=== PATIENT | female | born 1960 | race Caucasian/White ===

== ENCOUNTER → 2016-05-28 | Outpatient (CLI) | payer OTHER ==
[~2016-05-28] MED LIST: AMLO-110 PO; LSN5 PO; METFTAB2 PO
--- NOTE | 2016-05-29 07:15 | PAP/PSG TECHNICIAN REPORT ---
[facility] Supervisor Liquefaction Polysomnogram Report Study name: None Report date: 05/29/2016 Study date: 05/28/2016 Referring Physician: LOLITA KENNEDY PA-C Name: RICARDO HICKMAN Interpreting Physician: Alex Cho M.D. Date of : 1960 Supervisor Liquefaction: Adrianna Bonner, PSGT. Sex: Female Age: 55 StudyType: PSG Weight: 248 lbs Height: 55 years, Height 4' 11" Neck Circum: BMI: 50.08 Medications: AVELOX 400 MG, PROVENTIL 2.5 MG, NORVASAC 5 MG, ATIVAN 0.5 MG, LISINOPRIL 5 MG, METFORMIN ER 500 MG, LEVOXYL 25 MCH, PAXIL 20 MG. Patient History 55 YR. OLD FEMALE IN ROOM 7, HAD A AHI OF 7.7 IN AND IS HERE FOR A TITRATION SLEEP STUDY. Parameters Monitored NPSG: E1-M2, E2-M1, Fp1-M2, Fp2-M1, F3-M2, F4-M2, F4-M1, C3-M2, C4-M2, C4-M1, O1-M2, O2-M2, O2-M1, T3-M2, T4-M1, P3-M2, P4-M1, CHIN1, CHIN2, HR, EKG, Legs, PFLOW, SNOR, FLOW, CFLOW, Tidal Volume, THOR, ABDO, SpO2, PLTH, CPRESS, ETCO2 Wave, ETCO2, pH Sleep Architecture Sleep Stages Time at Lights Off 11:07:32 PM STAGES Time (min.) TST (%) Time at Lights On 5:42:32 AM Wake 53.5 -- Total Recording Time (TRT) 395.50 min. N1 35.5 10 Total Sleep Period (TSP) 377.0 min. N2 202.5 59 Total Sleep Time (TST) 340.5min. N3 22.5 7 Awake Time 55.0 min. REM 80.0 23 Wake after Sleep Onset 38.5 min. Sleep Efficiency (SE) 86 % Sleep Onset Latency (SONYA) 16.0 min. Number of Stage 1 Shifts None Awakenings 8 Stage Changes 35 Number of REM periods 2 REM 80.0 23 REM Latency 147.0 min. NREM 260.5 77 Body Position Analysis Supine Right Left Side Prone Vertical Total Sleep Time (min.) 17.2 151.1 176.1 327.20 0.0 0.0 Total Sleep Time (%) 4% 44% 52% 96 0% N/A% Total Sleep Time REM (min.) 13.3 23.2 43.5 None 0.0 0.0 Total Sleep Time NREM (min.) 0.0 127.9 132.6 None 0.0 0.0 Intermittent Wake (min.) 3.9 24.4 25.2 None 0.0 0.0 Total Sleep Period (%) 4% None None None None None Arousals Myoclonus (PLM) * Events Count Index Events Count Index Spontaneous 14 2 Events Awake (PLMW) 1 1.1 Respiratory 0 0.0 Events Asleep w/ Arousal (PLMA) 6 1.1 PLM 6 1 Events Asleep w/o Arousal (PLMS) 173 30.5 Snoring 0 0 Total Asleep 179 31.5 Total 20 4 Total 180 27 Respiratory Analysis * CA OA MA CH H RERA Total Count 0 0 0 0 0 0 0 Index 0.0 0.0 0.0 0 0.0 0 0.0 Mean Duration 0.0 0.0 0.0 0.00 0.0 0.0 0.0 Longest Duration 0.0 0.0 0.0 0.00 0.0 0.0 0.0 Respiratory Event Summary Total Supine ~Supine Right Left Prone REM NREM Apneas Count 0 0 0 0 0 N/A 0 0 Index 0.0 0 0 0.0 0.0 N/A 0 0 Hypopneas (4% Desat) Count 0 0 0 0 0 N/A 0 0 Index 0.0 0.0 0 0.0 0.0 N/A 0.0 0.0 Apneas & All Hypopneas Count 0 0 0 0 0 N/A 0 0 Index 0.0 0 0 0 0 N/A 0.0 0.0 Respiratory Events (Slicer Machine Operator+All Hyp+RERA) Count 0 0 0 0 0 N/A 0 0 Index 0.0 0 0 0.0 0.0 N/A 0.0 0.0 Respiratory Related Arousal Count 0 0 0 0 0 N/A 0 0 Index 0.0 0 0 0 0 N/A 0 0 Snoring Analysis Supine Right Left Prone REM NREM Total Snore duration 0.1 min Snores count 1 2 0 N/A 1 2 3 Snore mean duration 2.0 Sec Snores index 5 1 0 N/A 0.8 0.5 0.5 TST with snoring (%) 0.0% Desaturation Event Summary: Minimum %SpO2 Event Count Mean/Min/Max Duration(sec.) Desaturation Index % Time In Bed > 90 4 31.2 / 19.0 / 41.3 0.7 93.4 86 - 90 0 N/A 0.0 6.5 81 - 85 0 N/A 0.0 0.1 76 - 80 0 N/A 0.0 0.0 71 - 75 0 N/A 0.0 0.0 66 - 70 0 N/A 0.0 0.0 61 - 65 0 N/A 0.0 0.0 56 - 60 0 N/A 0.0 0.0 51 - 55 0 N/A 0.0 0.0 < 50 0 N/A 0.0 0.0 Total REM NREM Awake <50% 0.0 min. 0.0 min. 0.0 min. 0.0 min. 51 - 60% 0.0 min. 0.0 min. 0.0 min. 0.0 min. 61 - 70% 0.0 min. 0.0 min. 0.0 min. 0.0 min. 71 - 80% 0.1 min. 0.0 min. 0.0 min. 0.1 min. 81 - 90% 24.9 min. 0.3 min. 21.5 min. 3.2 min. 91 - 100% 354.5 min. 79.3 min. 236.0 min. 39.2 min. Average 93 93 93 94 Minimum SpO2 72 76 79 72 Desaturation Event Index 0.6 1.5 0.5 0.0 # Desat. Events below 89% N/A N/A N/A N/A Time(%) with Saturation below 89% 0.1 0.0 0.1 0.0 Time(min.) with Saturation below 89% 0.4 0.0 0.2 0.2 Heart Rate Analysis End Tidal CO2 Analysis Min (bpm) Max (bpm) Average (bpm) TSP (mins) % of TSP Awake 42 250 84 Above 55 mmHg 0.0 0.0 NREM 63 250 78 50-55 mmHg 0.0 0.0 REM 69 88 76 45-50 mmHg 340.5 100.0 Overall 63 250 78 40-45 mmHg 0.0 0.0 35-40 mmHg 0.0 0.0 30-35 mmHg 0.0 0.0 Average ETCO2 0.0 Supplemental O2 Values Minimum O2 level: None Value Start Time End Time Supervisor Liquefaction Comments PAP Study: MS. Hickman slept in the right, left, and supine positions. No cardiac arrhythmia or PLM's noted. No bruxism noted. CPAP was initiated at +4 CMH2O and up-titrated to an optimal level of +5 CMH2O, which nearly eliminated all respiratory events and snoring. A Small Res [employer] Mirage FX was used during titration Ms. Hickman awoke to use the restroom one time during the night. Ms. Hickman stated, I did not sleep as well as I do when I am in my own bed". The final report will be interpreted and signed by a sleep physician. The completed physician report will then be placed in the patient medical record. Pt. had chosen a nasal mask this time, and she did well with it. She tolerated and responded well to treatment. One increase of pressure was made for snoring. Therapy Event: Therapy (cm H20) 0 4 5 Total Time at Pressure (min.) 2.4 233.6 158.0 TST at Pressure (min.) 0.0 202.0 138.5 # Periods 1 1 1 Sleep Onset (min.) N/A 13.6 0.0 REM Onset (min.) N/A 160.6 120.5 Sleep Efficiency % 0 86 87 Wakefulness (%) 100.0 13.5 12.3 Wakefulness (min.) 2.4 31.6 19.5 NREM 1 (%) 0.0 12.0 4.7 NREM 1 (min.) 0.0 28.0 7.5 NREM 2 (%) 0.0 46.2 59.8 NREM 2 (min.) 0.0 108.0 94.5 NREM 3 (%) 0.0 9.6 0.0 NREM 3 (min.) 0.0 22.5 0.0 REM (%) 0.0 18.6 23.1 REM (min.) 0.0 43.5 36.5 # Arousals N/A 10 10 Arousal Index N/A 3.0 4.3 # Snore N/A 0 3 Snore Index N/A 0.0 1.3 AHI N/A 0.0 0.0 AHI Supine N/A N/A 0.0 AHI Non-Supine N/A 0.0 0.0 NREM AHI N/A 0.0 0.0 REM AHI N/A 0.0 0.0 RDI N/A 0.0 0.0 # Obstructive N/A 0 0 # Central Ap N/A 0 0 # Mixed N/A 0 0 # Hypopneas N/A 0 0 RERAS N/A 0 0 Total Respiratory Events N/A 0 0 Time Below SpO2 89.00% (min.) 0.0 0.0 0.2 Mean NREM SpO2 (%) N/A 95 92 Mean REM SpO2 (%) N/A 93 93 Mean Sleep SpO2 (%) N/A 94 92 Min NREM SpO2 (%) N/A 91 79 Min REM SpO2 (%) N/A 76 90 Position Supine (min.) 0.0 0.0 13.3 Position Non-supine (min.) 0.0 202.0 125.2 LM Index Sleep N/A 46.0 10.4 LM Index NREM N/A 56.4 10.0 LM Index REM N/A 8.3 11.5 Mean Heart Rate (bpm) N/A 78 77 Min Heart Rate (bpm) N/A 69 63
--- NOTE | 2016-06-15 17:32 | POLYSOMNOGRAPH REPORT ---
REFERRING PERSON: Dr. Shelia Cho. MECHANIC: Gabrielle Bonner. HISTORY: Ms. Dallas is a 55-year-old female who was found to have mild sleep apnea and nocturnal hypoxemia on sleep testing in February 2016. She has been sent to the sleep lab for a full night titration study. Her Ney sleepiness scale score on the evening of this study is not recorded. BMI is 50.08. Following the technical and digital specifications of the [employer] [place] [employer] (AASM) a standard diagnostic polysomnogram was performed monitoring EEG, EOG, EMG (chin and leg deviations), oxygen saturation, body position, digital video, respiratory effort and airflow. The sleep Stage and event scoring was based on the AASM Manual for the Scoring of Sleep and Associated Events 2007 edition. Apneas are defined as a drop in the peak thermal sensor excursion by >90% of baseline for at least 10 seconds. Hypopneas were scored using the 4% oxygen desaturation rule (4A-[employer]) and a decrease in the nasal pressure excursions by >30% of baseline for at least 10 seconds. Respiratory effort-related arousal (RERA's) is defined as a sequence of breaths lasting at least 10 seconds characterized by increasing respiratory effort or flattening of the nasal pressure waveform leading to an arousal from sleep when the sequence of breaths does not meet criteria for an apnea or hypopnea. Apnea Hypopnea index (AHI) is defined as the number of apneas and hypopneas occurring in an hour of sleep. Respiratory disturbance index (RDI) is defined as the number of apneas, hypopneas, and RERA's occurring in an hour of sleep. Ms. Dallas's total sleep period time was 377 minutes. Total sleep time was 340.5 minutes. Sleep efficiency was 86%. Latency to sleep onset was 16 minutes with wake after sleep onset of 38.5 minutes. Total non-REM sleep time was 260.5 minutes. She spent 10% of that time in N1 sleep, 59% in N2 sleep and 7% in N3 sleep. REM latency was 147 minutes. Total REM sleep time was 80 minutes or 23% of total sleep time. There were 20 cortical arousals from sleep, 14 of these arousals were spontaneous and 6 were due to respiratory events. There were 179 periodic limb movements during sleep. Limb movement index was 31.5. Limb movement with arousal index was 1.1. During this titration, there were no central, obstructive or mixed apneas. There were no hypopneas and no RERAs. Apnea-hypopnea index was 0. Three snoring events were recorded. Total sleep time with snoring was minimal. Mean saturation during sleep was 93%. Saturations were less than 89% for only 0.4 minutes of recording time on this titration. There is no cardiac ectopy noted. Heart rates ranged from a low of 63 beats per minute to a high of 127 beats per minute during sleep. As stated above, this was a CPAP titration study. Ms. Dallas chose a small ResMed Mirage FX mask for her titration. She was titrated from a CPAP pressure of 4 to a CPAP pressure of 5 over the course of the night. She was able to reach supine REM sleep on a pressure of 5. She was observed on a pressure of 5 for 138.5 minutes, 36.5 of which was REM sleep. AHI and RDI on this pressure were both 0 and saturations were only less than 89% for 0.2 minutes of recording time. IMPRESSION AND PLAN: Successful CPAP titration study in this patient with known mild sleep apnea and nocturnal hypoxemia. She appears to do well on CPAP at a pressure of 5. No hypoxemia is noted on this setting. A download from her machine should be reviewed in 1 month both to check compliance as well as AHI and further pressure adjustments should occur at that time.
== END | disposition home or self-care (01) ==
LOC: C.NEUR 21:00
PROVIDERS: ATTEND Family Medicine
DX: G47.33 Obstructive sleep apnea (adult) (pediatric) (principal)

== ENCOUNTER → 2017-06-03 | Outpatient (CLI) | payer OTHER | END | disposition home or self-care (01) | LOC: C.PAPS 12:07 | PROVIDERS: ATTEND Physician Assistant | DX: Z12.4 Encounter for screening for malignant neoplasm of cervix (principal) ==

== ENCOUNTER → 2017-06-25 | Outpatient (CLI) | payer OTHER ==
[2017-06-25 17:12] LABS: BASO % 0.5 %; BASO ABS # 0.03 K/uL (0-0.2); EOS % 3.5 %; EOS ABS # 0.23 K/uL (0-0.5); HEMATOCRIT 45.5 % (37-47); IG# 0.05 K/uL (0.00-0.02); LYMPH % 22.5 %; LYMPH ABS # 1.49 K/uL (1.2-3.4); MEAN CELL VOLUME 95.8 fL (80-100); MEAN CORPUSCULAR HEMOGLOBIN 31.6 pg (25-34); MONO % 7.9 %; MONO ABS # 0.52 K/uL (0.11-0.59); NEUT % 64.8 %; NEUT ABS # 4.29 K/uL (1.4-6.5); PLATELET COUNT 267 K/uL (130-400); RED CELL DISTRIBUTION WIDTH CV 13.3 % (11.5-14.5); RED CELL DISTRIBUTION WIDTH SD 46.5 fL (36.4-46.3); WHITE BLOOD COUNT 6.61 K/uL (4.8-10.8)
[2017-06-25 17:47] LABS: ALBUMIN 3.7 gm/dl (3.4-5.0); ALT/SGPT 29 U/L (12-78); BLOOD UREA NITROGEN 13 mg/dl (7-18); CALCIUM 9.1 mg/dl (8.5-10.1); CARBON DIOXIDE 28 mmol/L (21-32); CHOLESTEROL 178 mg/dl (0-200); CREATININE 0.72 mg/dl (0.60-1.20); GLUCOSE 191 mg/dl (70-99); POTASSIUM 4.4 mmol/L (3.5-5.1); SODIUM 138 mmol/L (136-145)
[2017-06-25 17:48] LABS: CREATININE RANDOM URINE 56.3 mg/dl
[2017-06-25 17:58] LABS: ALKALINE PHOSPHATASE 111 U/L (45-117); AST/SGOT 15 U/L (15-37); LDL CHOLESTEROL CALCULATED 106 mg/dl; TOTAL PROTEIN 7.7 gm/dl (6.4-8.2)
== END | disposition home or self-care (01) ==
LOC: C.LABBFT 12:31
PROVIDERS: ATTEND Internal Medicine
DX: E11.9 Type 2 diabetes mellitus without complications (principal); Z68.42 Body mass index [BMI] 45.0-49.9, adult

== ENCOUNTER → 2017-07-02 | Outpatient (CLI) | payer OTHER ==
--- NOTE | 2017-07-02 15:37 | MAMMOGRAPHY REPORT ---
BILATERAL DIGITAL SCREENING MAMMOGRAM TOMOSYNTHESIS WITH CAD: 07/02/2017 CLINICAL HISTORY: Routine screening. Patient has no complaints. TECHNIQUE: Breast tomosynthesis in addition to standard 2D mammography was performed. Current study was also evaluated with a Computer Aided Detection (CAD) system. COMPARISON: Comparison is made to exams dated: 03/20/2016 mammogram, 02/13/2015 mammogram, 4 mammogram, 02/07/2013 mammogram, 01/21/2012 mammogram, and 01/19/2011 mammogram - [facility]. BREAST COMPOSITION: There are scattered areas of fibroglandular density in both breasts. FINDINGS: No suspicious masses, calcifications, or areas of architectural distortion are noted in ei ther breast. There has been no significant interval change compared to prior exams. IMPRESSION: ACR BI-RADS CATEGORY 1: NEGATIVE There is no mammographic evidence of malignancy. A 1 year screening mammogram is recommended. The pa tient will receive written notification of the results. Approximately 10% of breast cancers are not detected with mammography. A negative mammographic report should not delay biopsy if a clinically suggestive mass is present. Desiree Wilkes M.D. /:07/02/2017 13:35:36 Industrial Analyst: Cornelia Crews, [facility] letter sent: Normal 1/2 BI-RADS Code: ACR BI-RADS Category 1: Negative
== END | disposition home or self-care (01) ==
LOC: C.MAMM 13:07
PROVIDERS: ATTEND Internal Medicine
DX: Z12.31 Encounter for screening mammogram for malignant neoplasm of breast (principal)

== ENCOUNTER → 2017-07-02 | Outpatient (CLI) | payer OTHER ==
--- NOTE | 2017-07-02 11:46 | DIAGNOSTIC IMAGING REPORT ---
ULTRASOUND OF THE THYROID GLAND CLINICAL HISTORY: Goiter. COMPARISON STUDY: No priors. TECHNIQUE: Real-time, grayscale, and color flow sonography of the thyroid gland is performed utilizing a high-frequency linear transducer. Images are reviewed in the transverse and longitudinal planes. FINDINGS: Right lobe: The right lobe of the thyroid gland is enlarged and heterogeneous in echotexture, measuring 7.4 x 4.0 x 4.7 cm. The right lobe is infiltrated by numerous nodules. These are difficult to discretely assessed. The largest measures at least 4.1 cm. Left lobe: The left lobe of the thyroid gland is enlarged and heterogeneous in echotexture, measuring 8.0 x 4.1 x 3.7 cm. The left lobe is included by numerous nodules. These are difficult to discretely measure. Isthmus: The thyroid isthmus is thickened and heterogeneous, measuring up up to at least 1.6 cm in AP diameter. Numerous nodules are identified. IMPRESSION: Markedly enlarged and heterogeneous thyroid gland which is infiltrated by numerous nodules. The nodules are difficult to discretely assessed. Precautionary 1 year sonographic follow-up is recommended. Electronically signed by: Benitez Mccann M.D. 07/02/2017 11:45 AM Dictated Date/Time: 07/02/2017 11:42 AM
== END | disposition home or self-care (01) ==
LOC: C.ULTR 10:43
PROVIDERS: ATTEND Internal Medicine
DX: E04.9 Nontoxic goiter, unspecified (principal)

== ENCOUNTER → 2017-10-12 | Outpatient (CLI) | payer OTHER ==
[~2017-10-12] VITALS: Ht 152.4 cm; Wt 112.9 kg
[~2017-10-12] MED LIST changes: -AMLO-110 PO; +AMLO5TAB3 PO; +LISI-730 PO; -LSN5 PO
[2017-10-12 14:43] VITALS: BP 157/81; PULSE 106; Ht 152.4 cm; Wt 112.9 kg
== END | disposition home or self-care (01) ==
LOC: C.NEUR 13:05
PROVIDERS: ATTEND Internal Medicine Pulmonary Disease
DX: G47.33 Obstructive sleep apnea (adult) (pediatric) (principal); E04.9 Nontoxic goiter, unspecified; Z68.42 Body mass index [BMI] 45.0-49.9, adult